=== PATIENT | female | born 1985 | race Caucasian/White ===

== ENCOUNTER 2022-02-08 20:46 | Emergency (ER) | payer BC, SELFPAY ==
[2022-02-08 20:59] VITALS: BP 135/75; PULSE 101; RESP 18; TEMP 36.7; O2SAT 99; BMI 21.9
[2022-02-08] MEDS: LIDOCAINE 1% 5 ml (pf) 5 ML VIAL 3 ML IM (21:00)
--- NOTE | 2022-02-08 21:07 | ED.GENADULT ---
HPI - General Adult General Time Seen by Provider: 21:08 Date Seen: 02/08/22 Chief complaint: Skin/Abscess/Foreign Body Stated complaint: staple in hand Time Seen by Provider: 02/08/22 20:47 Source: patient Mode of arrival: ambulatory Limitations: no limitations History of Present Illness HPI narrative: Patient is a 36-year-old female who had a stapler gone go off in her hand, it was not pneumatic, but a regular industrial stapler. She has a stable in the palm of her hand/right. Patient is quite upset by the whole ordeal she is uncertain of her last tetanus shot. S medical history of GERD migraines pyelonephritis major depressive disorder anxiety disorder and borderline personality disorder.. Meds are citalopram and famotidine Related Data Home Medications Medication Instructions Recorded Confirmed citalopram 40 mg tablet 40 mg PO QDAY 02/02/22 02/08/22 gabapentin 100 mg capsule 100 mg PO HS 02/08/22 02/08/22 lamotrigine 25 mg tablet 25 mg PO DAILY 02/08/22 02/08/22 Previous Rx's Medication Instructions Recorded famotidine 20 mg tablet 20 mg PO QDAY #30 tabs 02/04/22 cephalexin 500 mg capsule 500 mg PO QID #20 caps 02/08/22 cephalexin 500 mg capsule 500 mg PO QID #20 caps 02/08/22 Allergies Allergy/AdvReac Type Severity Reaction Status Date / Time doxycycline AdvReac Unknown Vomiting Verified 02/02/22 13:24 Review of Systems Narrative: No history of bleeding or wound healing problems pure PFSH PFSH Medical History (Updated 02/08/22 @ 22:02 by Angus Chanel RN) Anxiety ASCUS with positive high risk HPV Borderline personality disorder History of hidradenitis suppurativa History of methamphetamine abuse History of peritonsillar abscess Major depressive disorder Surgical History Hx of colposcopy with cervical biopsy Social History Smoking Status: Current every day smoker Do you use any of these nicotine containing products: None Second hand tobacco smoke exposure: No How often do you have a drink containing alcohol: never How often do you have six or more drinks on one occasion: Never AUDIT-C Alcohol total score: 0 Non-prescribed substance use: denies use Exam Narrative: Exam Narrative: Objective: Is a stable in the palm of the hand moves her fingers fine but she is very apprehensive about moving or not grabbing her hand. Procedure: Sterile scrub and injected with 1% xylocaine without epinephrine the sia easily removed with a forceps. There was a little bit of are bleeding after removal and a pressure was applied seemed to have stopped will observe for a period of time. Will check on tetanus status Const: Vital Signs, click to edit/add: Vital Signs - 24 hr 02/08/22 20:59 02/08/22 21:37 02/08/22 22:07 Temperature 98.0 F 98.0 F Pulse Rate [Right Pulse Oximeter] 101 H 94 94 Respiratory Rate 18 18 18 Blood Pressure [Ri ght Upper Arm] 135/75 127/78 127/78 Pulse Oximetry 99 99 Oxygen Delivery Me thod Room Air Room Air Course Vital Signs Vital signs: Initial Vital Signs Temperature 98.0 F 02/08/22 20:59 Temperature Source Temporal Artery Scan 02/08/22 20:59 Pulse Rate 101 H 02/08/22 20:59 Respiratory Rate 18 02/08/22 20:59 Blood Pressure 135/75 02/08/22 20:59 Blood Pressure Mean 95 02/08/22 20:59 Blood Pressure Position Sitting 02/08/22 20:59 Pulse Oximetry 99 02/08/22 20:59 Oxygen Delivery Method 02/08/22 20:59 Vital Signs Temperature 98.0 F 02/08/22 20:59 Pulse Rate 101 H 02/08/22 20:59 Respiratory Rate 18 02/08/22 20:59 Blood Pressure 135/75 02/08/22 20:59 Pulse Oximetry 99 02/08/22 20:59 Oxygen Delivery Method 02/08/22 20:59 Temperature 98.0 F 02/08/22 22:07 Pulse Rate 94 02/08/22 22:07 Respiratory Rate 18 02/08/22 22:07 Blood Pressure 127/78 02/08/22 22:07 Pulse Oximetry 99 02/08/22 21:37 Oxygen Delivery Method 02/08/22 21:37 Medical Decision Making MDM Narrative Medical decision making narrative: The hand was inspected and there was no further bleeding. Another pressure dressing was placed. They can keep this on until tomorrow and then soak it off and cover with a bandage. Keflex x5 days, Advil or Tylenol as needed. Recheck as needed, examination of movement of the hands and sensation was full after stable remove Discharge Plan Discharge Clinical Impression: Foreign body hand Patient Disposition: Home w/ Parent or Adult Condition: Improved Additional Instructions: Keep dressing on for 1 day, then may soak it off, Tylenol Advil as needed for discomfort, watch for bleeding or infection, tetanus shot given, Keflex x5 days Activity Level: Light activity Discharge Diet: Regular Prescriptions: New cephalexin 500 mg capsule 500 mg PO QID Qty: 20 0RF cephalexin 500 mg capsule 500 mg PO QID Qty: 20 0RF No Action gabapentin 100 mg capsule 100 mg PO HS lamotrigine 25 mg tablet 25 mg PO DAILY citalopram 40 mg tablet 40 mg PO QDAY famotidine 20 mg tablet 20 mg PO QDAY Qty: 30 0RF Rx Instructions: due for an appt for further refills Follow Up/Referrals: Mart Cam PA-C [Primary Care Provider] - Stand Alone Forms: [employer] Info Instructions
[2022-02-08] MEDS: cephALEXin 500 MG CAPSULE PO (21:29)
[2022-02-08] MEDS: TETANUS/DIPHTH/PERTUSSIS 0.5 ML SYRINGE IM (21:30)
[2022-02-08 21:37] VITALS: BP 127/78; PULSE 94; RESP 18; O2SAT 99
[2022-02-08 22:07] VITALS: BP 127/78; PULSE 94; RESP 18; TEMP 36.7
== END 2022-02-08 21:55 | disposition home or self-care (01) ==
PROVIDERS: Emergency Provider Family Medicine; PCP Physician Assistant Medical
DX: S61.441A Puncture wound with foreign body of right hand, initial encounter (principal); W45.8XXA Other foreign body or object entering through skin, initial encounter; Y93.9 Activity, unspecified; Y92.9 Unspecified place or not applicable; Y99.9 Unspecified external cause status
CPT/HCPCS: 90471; 90715; 99283; A9270

== ENCOUNTER 2023-05-12 21:55 | Emergency (ER) | payer BC, SELFPAY ==
[2023-05-12 22:02] VITALS: BP 127/83; PULSE 102; RESP 18; TEMP 36.6; O2SAT 100; BMI 26.5
--- NOTE | 2023-05-12 22:09 | ED_ITS ---
HPI - General Adult General Date Seen: 05/12/23 Chief complaint: Extremity Pain/Injury, Lower Stated complaint: left leg pain Time Seen by Provider: 05/12/23 21:56 Source: patient Mode of arrival: ambulatory Limitations: no limitations History of Present Illness HPI narrative: Patient is a 38-year-old female presenting to the emergency department for left leg and left lower back pain. She states she has been having this leg and back pain for the past 3 days. She went to a clinic appointment yesterday for it and was prescribed prednisone and was go pick it up today but was told by the pharmacist that there is something that will keep her awake at night she should probably started in the morning. States she feels some numbness in her left toes that seems to be going up into her knee but is mostly concerned about the left gluteal area and posterior thigh pain. She feels like the pain is starting in her low back. She works as a head of housekeeping and does not remember hurting herself or any recent heavy lifting. States she did not do anything different work than she usually does. Was unable to finish work the past 3 days because of the pain. Does have an MRI scheduled for next week. Is not aware of any injuries. Denies saddle anesthesia, loss of bowel or bladder control, urinary tension. No other concerns noted at this time. Does state she has the lay in a certain position to be symptom free. She has been taking ibuprofen for pain with some improvement in her symptoms. Related Data Home Medications Medication Instructions Recorded Confirmed citalopram 40 mg tablet 40 mg PO QDAY 02/02/22 05/11/23 gabapentin 100 mg capsule 100 mg PO HS 02/08/22 05/11/23 lamotrigine 25 mg tablet 25 mg PO DAILY 02/08/22 05/11/23 Previous Rx's Medication Instructions Recorded famotidine 20 mg tablet 20 mg PO QDAY #30 tabs 02/04/22 prednisone 20 mg tablet See Rx Instructions PO QDAY back 05/11/23 pain #10 tabs oxycodone 5 mg tablet 5 mg PO Q6H PRN pain #12 tabs 05/12/23 Allergies Allergy/AdvReac Type Severity Reaction Status Date / Time doxycycline AdvReac Unknown Vomiting Verified 05/11/23 15:14 Review of Systems Status of ROS: Reports: 10 or more systems reviewed and unremarkable except as noted in History and below PFSH PFSH Medical History ASCUS with positive high risk HPV Major depressive disorder ?F32.9 - Major depressive disorder, single episode, unspecified (ICD-10) Anxiety ?F41.9 - Anxiety disorder, unspecified (ICD-10) Borderline personality disorder ?F60.3 - Borderline personality disorder (ICD-10) History of methamphetamine abuse ?F15.11 - Other stimulant abuse, in remission (ICD-10) History of hidradenitis suppurativa ?Z87.2 - Personal history of diseases of the skin and subcutaneous tissue (ICD-10) History of peritonsillar abscess ?Z87.09 - Personal history of other diseases of the respiratory system (ICD- 10) Surgical History Hx of colposcopy with cervical biopsy ?Z98.890 - Other specified postprocedural states (ICD-10) Social History Smoking Status: Current every day smoker What tobacco products do you use: cigarettes Do you use any of these nicotine containing products: None Second hand tobacco smoke exposure: No How often do you have a drink containing alcohol: never How often do you have six or more drinks on one occasion: Never AUDIT-C Alcohol total score: 0 Non-prescribed substance use: denies use service: No Exam Narrative: Exam Narrative: Const: Well-nourished, Well-developed, in moderate distress Eyes: PERRL, no conjunctival injection, and symmetrical lids HENT: Atraumatic external nose and ears. Moist mucous membranes. MSK:Extremities w/o deformity, Normal Active ROM, positive slump leg test bilaterally Skin: Warm, Dry. No rashes or lesions. Neuro: Normal Muscle tone, No focal neurological deficits. Psych: Awake, Alert, & Oriented x3. Appropriate mood and affect. Const: Vital Signs, click to edit/add: Vital Signs - 24 hr 05/12/23 22:02 Temperature 97.8 F Pulse Rate [Pulse Oximeter] 102 H Respiratory Rate 18 Blood Pressure [Ri ght Upper Arm] 127/83 Pulse Oximetry 100 Oxygen Delivery Me thod Room Air Course Vital Signs Vital signs: Initial Vital Signs Temperature 97.8 F 05/12/23 22:02 Temperature Source Temporal Artery Scan 05/12/23 22:02 Pulse Rate 102 H 05/12/23 22:02 Respiratory Rate 18 05/12/23 22:02 Blood Pressure 127/83 05/12/23 22:02 Blood Pressure Mean 97 05/12/23 22:02 Blood Pressure Position Sitting 05/12/23 22:02 Pulse Oximetry 100 05/12/23 22:02 Oxygen Delivery Method Room Air 05/12/23 22:02 Vital Signs Temperature 97.8 F 05/12/23 22:02 Pulse Rate 102 H 05/12/23 22:02 Respiratory Rate 18 05/12/23 22:02 Blood Pressure 127/83 05/12/23 22:02 Pulse Oximetry 100 05/12/23 22:02 Oxygen Delivery Method Room Air 05/12/23 22:02 Temperature 97.8 F 05/12/23 22:02 Pulse Rate 102 H 05/12/23 22:02 Respiratory Rate 18 05/12/23 22:02 Blood Pressure 127/83 05/12/23 22:02 Pulse Oximetry 100 05/12/23 22:02 Oxygen Delivery Method Room Air 05/12/23 22:02 Medications Administered Medications: Discontinued Medications Generic Name Dose Route Start Last Admin Trade Name Martha PRN Reason Stop Dose Admin Ketorolac Tromethamine 30 mg 05/12/23 22:23 05/12/23 22:40 Ketorolac 30 Mg/Ml Inj IM 05/12/23 22:24 30 mg ONCE ONE Administration Oxycodone HCl 5 mg 05/12/23 22:23 05/12/23 22:41 Oxycodone 5 Mg Tablet PO 05/12/23 22:24 5 mg ONCE ONE Administration Medical Decision Making [facility] Narrative Medical decision making narrative: Patient is a 38 year female presenting for left leg and low back pain. Symptoms seem to start in the low back and on the slumped over straight leg test she had pain to the left leg and left lower back with extension of either leg. Present illness I think it is likely she has a herniated disc. Symptoms. Start from her back and there is no leg swelling so pain seems unlikely to be secondary to DVT. I do not believe ultrasound is necessary. This will be consistent with a symptoms everything seems to be a nerve issue. She is having no red flag symptoms for cauda equina syndrome as this time. Imaging is not necessary as x- rays and CTs would not be very beneficial and she has an MRI scheduled for next week. We will give her a dose of Toradol and some oxycodone emergency d epartment to help with her symptoms. Of note she used to be on gabapentin for her borderline personality and anxiety disorder but is no longer taking it. Patient did have improvement in her pain with the medication. She will be discharged home with oxycodone. She is agreeable to this plan. Discharge Plan Discharge Clinical Impression: Low back pain Qualifiers: Chronicity: acute Back pain laterality: left Sciatica presence: with sciatica Sciatica laterality: sciatica of left side Qualified Code(s): M54.42 - Lumbago with sciatica, left side Patient Disposition: Home, Self-Care Condition: Improved Instructions: Acute Low Back Pain (ED) Additional Instructions: Take Tylenol and ibuprofen for pain. If that is not helping use the oxycodone. Make sure to go to your MRI appointment next week. Return to emergency department for new or worsening symptoms Prescriptions: New oxycodone 5 mg tablet 5 mg PO Q6H PRN (Reason: pain) Qty: 12 0RF No Action prednisone 20 mg tablet See Rx Instructions PO QDAY Qty: 10 0RF Rx Instructions: 3 po as single dose days 1-2, 2 po as single dose days 3-4, 1 po days 5-6, then discontinue. gabapentin 100 mg capsule 100 mg PO HS lamotrigine 25 mg tablet 25 mg PO DAILY citalopram 40 mg tablet 40 mg PO QDAY famotidine 20 mg tablet 20 mg PO QDAY Qty: 30 0RF Rx Instructions: due for an appt for further refills Follow Up/Referrals: Mart Cam PA-C [Primary Care Provider] - Stand Alone Forms: [employer] Info Instructions
--- OUTSIDE RECORDS SUMMARY | 2023-05-12 22:39 | XMS_ITS | Clinical Summary ---
Author Name Unknown Organization [facility] Address [place], [place] [address] Care Team Providers Care Bottling Room Worker Name Role Phone Unknown, Doctor Primary Care Provider Unavailabl e Allergies No known active allergies Medications Medication Sig Dispensed Refills Start Date End Date Status lamoTRIgine (LAMICTAL) 200 mg tabletIndications:de pression associated with bipolar disorder Take 1 tablet by mouth once daily. Indications: DEPRESSION ASSOCIATED WITH MANIC DEPRESSIVE DISORDER 0 09/25/2014 Active citalopram (CELEXA) 40 mg tabletIndications:an xiety with depression Take 1 tablet by mouth once daily. Indications: ANXIETY WITH DEPRESSION 0 09/25/2014 Active Active Problems Problem Noted Date Diagnosed Date Adjustment disorder with depressed mood 09/26/19 15 Mood disorder 09/24/2014 Methamphetamine abuse 09/24/2014 Amphetamine abuse 09/24/2014 Borderline personality disorder 09/24/2014 BURN, TRUNK 04/07/2005 SPRAIN/STRAIN, METACARPOPHALANGEAL 01/13/2001 KNEE PAIN Family History Medical History Relation Name Comments Genetic Other MOm has migrain e CHAVARRIA Relation Name Status Comments Other Social History Tobacco Use Types Packs/Day Years Used Date Smoking Tobacco: Former Cigarettes Q uit: 09/07/2002 Smokeless Tobacco: Never Alcohol Use Standard Drinks/Week Comments Not Asked 0 (1 standard drink = 0.6 oz pur e alcohol) Sex and Gender Information Value Date Recorded Sex Assigned at Not on file Gender Identity Not on file Sexual Orientation Not on file Obstetrics History Last Filed Vital Signs Vital Sign Reading Time Taken Comments Blood Pressure 126/68 09/24/2014 4:00 PM CDT Pulse 83 09/24/2014 4:00 PM CDT Temperature 36.9 ??C (98.4 ??F) 09/24/2014 4:00 PM CD T Respiratory Rate 18 09/24/2014 4:00 PM CDT Oxygen Saturation 98% 09/23/2014 6:00 PM CDT Inhaled Oxygen Concentration - - Weight 48.1 kg (106 lb) 04/19/2006 10:15 AM CRM DEVELOPER Height 160 cm (5' 3) 04/19/2006 10:15 AM CRM DEVELOPER Body Mass Index 18.78 04/19/2006 10:15 AM CRM DEVELOPER Plan of Treatment Health Maintenance Due Date Last Done Comments COVID-19 vaccine series (#1) 1987 Tdap 1998 Depression screening for age 12+ 1999 HIV for age 15-65 2002 BMI (ht and wt on same day) for age 18+ 2005 Hepatitis C screening for ag e 18-79 2005 Tetanus booster 2007 Pap test for age 21-65 09/20/2022 0, 09/21/2019, 04/10/2013 Influenza for age 9-49 12/03/2022 Pneumococcal series for age 6-64 Aged Out No longer eligible b ased on patient's age to complete this topic Advance Directives Latest Code Status on File Code Status Date Activated Date Inactivated Comments Full Code 09/23/2014 6:37 PM 09/25/2014 3:36 PM Care Teams Bottling Room Worker Relationship Specialty Start Date End Date Unknown, Doctor . PCP - General Unknown Physician Specialty 03/30/12
[2023-05-12] MEDS: KETOROLAC 30 MG/ML inj IM (22:40)
[2023-05-12] MEDS: OXYCODONE 5 MG TABLET PO (22:41)
== END 2023-05-12 23:30 | disposition home or self-care (01) ==
PROVIDERS: Emergency Provider Student in an Organized Health Care Education/Training Program; PCP Physician Assistant Medical
DX: M54.42 Lumbago with sciatica, left side (principal)
CPT/HCPCS: 96372; 99282; 99283; A9270; J1885

== ENCOUNTER 2023-05-19 13:48 | Outpatient (CLI) | payer BC, SELFPAY ==
--- NOTE | 2023-05-19 13:45 | MR_ITS ---
[facility] [address] [facility] [address] Phone:?[phone] Fax:?[phone] Referring Physician Information: Humberto Moreno [address] [facility] [address] Phone:?[phone] Fax:?[phone] Patient:Jordon Mei D.O.B:?1985 Sex:?Female Phone:?[phone] [facility] MRN:?[id number] Exam Date:?05/19/2023 EXAM: MRI OF THE LUMBAR SPINE WITHOUT CONTRAST CLINICAL INFORMATION: Low back pain radiating into left leg. TECHNICAL INFORMATION: Sagittal fast spin-echo T2-weighted, T1-weighted, STIR as well as axial fast spin-echo T1 and T2-weighted images of the lumbar spine were obtained on a 1.5 [employer] MRI scanner.?SEDATION:?None.?CONTRAST:?None. INTERPRETATION: No comparison. Generalized dextrocurvature and straightened lumbar lordosis. No acute fracture or spondylolysis. Conus is normal and terminates at T12-L1. Imaged upper sacrum and paraspinal soft tissue structures are unremarkable. Disc desiccation and annular bulging are demonstrated at L5-S1 and L4-5. Disc space narrowing is moderate at L4-5 and mild at L5-S1. L5-S1: 8 to 9 mm AP diameter, cranially extending left posterolateral, broad- based disc extrusion with mild to moderate central stenosis, mild to moderate right/severe left subarticular recess narrowing and impingement upon the traversing left S1 and S2 nerve roots. Mild bilateral facet hypertrophy with mild bilateral chronic foraminal narrowing. L4-5: 5 to 6 mm AP diameter, broad-based central disc protrusion with mild to moderate central stenosis, moderate bilateral subarticular recess narrowing and encroachment upon the traversing bilateral L5 nerve roots. Mild right facet hypertrophy with mild right medial chronic foraminal narrowing. L3-4 through T11-12: Normal posterior disc margins and facets. Patent foramina. CONCLUSION: L4-5 and L5-S1 disc degeneration with the following notable findings: 1. 8-9 mm, cranially extending left posterolateral disc extrusion with mild to moderate central stenosis and subarticular impingement upon the traversing left S1 and S2 nerve roots. 2. 5 to 6 mm broad-based central L4-5 disc protrusion with mild to moderate central stenosis and subarticular encroachment upon the traversing bilateral L5 nerve roots. 3. No acute fracture or spondylolysis. 4. Chronic mild bilateral L5-S1 and mild right medial L4-5 foraminal narrowing without ganglionic compression. SC Electronically signed on 05/19/2023 6:02:00 PM by Alonso Manning M.D.
--- OUTSIDE RECORDS SUMMARY | 2023-05-19 13:50 | XMS_ITS | Clinical Summary ---
Author Name Unknown Organization [facility] Address [place], [place] [address] Care Team Providers Care Almond Sorter Name Role Phone Unknown, Doctor Primary Care [...] 48.1 kg (106 lb) 04/19/2006 10:15 AM BEAUTY CULTURIST APPRENTICE Height 160 cm (5' 3) 04/19/2006 10:15 AM BEAUTY CULTURIST APPRENTICE Body Mass Index 18.78 04/19/2006 10:15 AM BEAUTY CULTURIST APPRENTICE Plan of Treatment Health Maintenance Due Date [...] 6:37 PM 09/25/2014 3:36 PM Care Teams Almond Sorter Relationship Specialty Start Date End Date Unknown, Doctor . PCP - General Unknown Physician Specialty 03/30/12
== END 2023-05-19 13:49 | disposition home or self-care (01) ==
PROVIDERS: PCP Physician Assistant Medical; Visit Provider Physician Assistant
DX: M54.50 Low back pain, unspecified (principal); M51.26 Other intervertebral disc displacement, lumbar region; M51.37 Other intervertebral disc degeneration, lumbosacral region
CPT/HCPCS: 72148

== ENCOUNTER 2023-06-26 01:36 | Emergency (ER) | payer BC, SELFPAY ==
[2023-06-26 01:50] VITALS: BP 108/64; PULSE 104; RESP 20; TEMP 36.5; O2SAT 100; BMI 27.2
--- NOTE | 2023-06-26 01:57 | ED_ITS ---
HPI - General Adult General Chief complaint: Back Injury/Pain Stated complaint: back pain Time Seen by Provider: 06/26/23 01:39 Source: patient Mode of arrival: ambulatory Limitations: no limitations History of Present Illness HPI narrative: 38-year-old female coming in today complaining of low back pain radiating down the left leg. Patient was diagnosed with a herniated disc about a month ago. She states she has been dealing with this for about 6 weeks now. She has a surgery scheduled 6 days from now, she will be having a micro diskectomy. She states that she received oxycodone from this ER about 6 weeks ago and she has 4 tablets left, she took 1 earlier did not help. She has been taking Tylenol otherwise for her pain. Today however the pain got worse and she is unable to find a comfortable position. She denies any saddle anesthesia, no loss of bowel or bladder function. No fevers or chills. No nausea or vomiting. Pain is in the same location and distribution as it has always been. Related Data Home Medications Medication Instructions Recorded Confirmed citalopram 40 mg tablet 40 mg PO QDAY 02/02/22 06/01/23 gabapentin 100 mg capsule 100 mg PO HS 02/08/22 06/01/23 lamotrigine 25 mg tablet 25 mg PO DAILY 02/08/22 06/01/23 Previous Rx's Medication Instructions Recorded famotidine 20 mg tablet 20 mg PO QDAY #30 tabs 02/04/22 oxycodone 5 mg tablet 5 mg PO Q6H PRN pain #12 tabs 05/12/23 methylprednisolone 4 mg tablets in See Rx Instructions PO PER PKG DIR 06/01/23 a dose pack (Medrol (Charlie)) #21 ea prednisone 20 mg tablet 20 mg PO DIRECTED 6 days #12 06/26/23 tabs Allergies Allergy/AdvReac Type Severity Reaction Status Date / Time doxycycline Allergy Intermediate Vomiting Verified 06/26/23 01:50 stainless steel Allergy Intermediate body Uncoded 06/01/23 09:12 rejects Review of Systems Status of ROS: Reports: 10 or more systems reviewed and unremarkable except as noted in History and below [facility] Medical History Sciatica ?M54.30 - Sciatica, unspecified side (ICD-10) Left leg numbness ?R20.0 - Anesthesia of skin (ICD-10) Strain of lumbar region (12/22/12) ?S39.012A - Strain of muscle, fascia and tendon of lower back, initial encounter (ICD-10) Sore throat ?J02.9 - Acute pharyngitis, unspecified (ICD-10) Positive blood culture ?R78.81 - Bacteremia (ICD-10) Pharyngitis ?J02.9 - Acute pharyngitis, unspecified (ICD-10) Peritonsillar abscess ?J36 - Peritonsillar abscess (ICD-10) Neck infection ?L08.9 - Local infection of the skin and subcutaneous tissue, unspecified (ICD-10) History of fever ?Z87.898 - Personal history of other specified conditions (ICD-10) Hidradenitis suppurativa of right axilla ?L73.2 - Hidradenitis suppurativa (ICD-10) Headache ?R51.9 - Headache, unspecified (ICD-10) Fever ?R50.9 - Fever, unspecified (ICD-10) Abscess of groin ?L02.214 - Cutaneous abscess of groin (ICD-10) ASCUS with positive high risk HPV Major depressive disorder ?F32.9 - Major depressive disorder, single episode, unspecified (ICD-10) Anxiety ?F41.9 - Anxiety disorder, unspecified (ICD-10) Borderline personality disorder ?F60.3 - Borderline personality disorder (ICD-10) History of methamphetamine abuse ?F15.11 - Other stimulant abuse, in remission (ICD-10) History of hidradenitis suppurativa ?Z87.2 - Personal history of diseases of the skin and subcutaneous tissue (ICD-10) History of peritonsillar abscess ?Z87.09 - Personal history of other diseases of the respiratory system (ICD- 10) Surgical History Hx of colposcopy with cervical biopsy ?Z98.890 - Other specified postprocedural states (ICD-10) Social History Narrative: IUD (intrauterine device) in place September 2020 Smoking Status: Current every day smoker What tobacco products do you use: cigarettes Do you use any of these nicotine containing products: None Second hand tobacco smoke exposure: No How often do you have a drink containing alcohol: never How often do you have six or more drinks on one occasion: Never AUDIT-C Alcohol total score: 0 Non-prescribed substance use: denies use service: No Exam Narrative: Exam Narrative: Well-nourished well-developed patient in moderate distress. Alert and oriented. Answers questions appropriately. Mood and affect are appropriate. Thoughts are goal oriented and rational. No tangential or magical thinking noted. Patient speaks in full sentences without needing to catch her breath. HEENT: Normocephalic atraumatic. Pupils are equally round reactive to light. Extraocular muscles are intact. Conjunctivae are moist without any icterus noted. Moist mucous membranes. Extremities: Bilateral lower extremities are without edema. Normal DP and PT pulses. Skin: Well perfused. Neurological exam: Normal muscle tone. No focal neurologic deficits. Positive straight leg raise. Back: No tenderness to palpation of the back. Const: Vital Signs, click to edit/add: Vital Signs - 24 hr 06/26/23 01:50 Temperature 97.7 F Pulse Rate [Pulse Oximeter] 104 H Respiratory Rate 20 Blood Pressure [Ri ght Upper Arm] 108/64 Pulse Oximetry 100 Oxygen Delivery Me thod Room Air Course Course ED Course: Patient received IM Toradol and a dose of oral prednisone. Vital Signs Vital signs: Initial Vital Signs Temperature 97.7 F 06/26/23 01:50 Temperature Source Temporal Artery Scan 06/26/23 01:50 Pulse Rate 104 H 06/26/23 01:50 Pulse Strength 3+ Normal 06/26/23 01:50 Respiratory Rate 20 06/26/23 01:50 Blood Pressure 108/64 06/26/23 01:50 Blood Pressure Mean 78 06/26/23 01:50 Pulse Oximetry 100 06/26/23 01:50 Oxygen Delivery Method Room Air 06/26/23 01:50 Vital Signs Temperature 97.7 F 06/26/23 01:50 Pulse Rate 104 H 06/26/23 01:50 Respiratory Rate 20 06/26/23 01:50 Blood Pressure 108/64 06/26/23 01:50 Pulse Oximetry 100 06/26/23 01:50 Oxygen Delivery Method Room Air 06/26/23 01:50 Temperature 97.7 F 06/26/23 01:50 Pulse Rate 104 H 06/26/23 01:50 Respiratory Rate 20 06/26/23 01:50 Blood Pressure 108/64 06/26/23 01:50 Pulse Oximetry 100 06/26/23 01:50 Oxygen Delivery Method Room Air 06/26/23 01:50 Medications Administered Medications: Discontinued Medications Generic Name Dose Route Start Last Admin Trade Name Martha PRN Reason Stop Dose Admin Ketorolac Tromethamine 60 mg 06/26/23 01:57 06/26/23 02:05 Ketorolac 30 Mg/Ml Inj IM 06/26/23 01:58 60 mg ONCE ONE Administration Prednisone 50 mg 06/26/23 01:57 06/26/23 02:05 Prednisone 10 Mg Tablet PO 06/26/23 01:58 50 mg ONCE ONE Administration Medical Decision Making MDM Narrative Medical decision making narrative: 38-year-old herniated disc. Awaiting surgery at this time. The patient states that she has had steroids in the past and they did help with her pain. Therefore she will be sent home on a prednisone taper. Medical Records Medical records reviewed: Yes I reviewed the patient's medical records Discharge Plan Discharge Clinical Impression: Lumbar radiculopathy Patient Disposition: Home, Self-Care Condition: Stable Additional Instructions: Take steroids as prescribed. Follow-up as needed. Prescriptions: New prednisone 20 mg tablet 20 mg PO DIRECTED 6 Days Qty: 12 0RF Rx Instructions: 60 mg p.o. daily for 2 days (3 tablets daily on day 1-2), 40 mg daily for 2 days (2 tablets daily on days 3-4), 20 mg daily for 2 days (1 tablet daily on days 5-6). No Action methylprednisolone [Medrol (Charlie)] 4 mg tablets,dose pack See Rx Instructions PO PER PKG DIR Qty: 21 0RF Rx Instructions: PO PER PKG DIR gabapentin 100 mg capsule 100 mg PO HS lamotrigine 25 mg tablet 25 mg PO DAILY oxycodone 5 mg tablet 5 mg PO Q6H PRN (Reason: pain) Qty: 12 0RF citalopram 40 mg tablet 40 mg PO QDAY famotidine 20 mg tablet 20 mg PO QDAY Qty: 30 0RF Rx Instructions: due for an appt for further refills Follow Up/Referrals: Mart Cam PA-C [Primary Care Provider] - Stand Alone Forms: [employer] Info Instructions
[2023-06-26] MEDS: predniSONE 10 MG TABLET 50 MG PO (02:05)
[2023-06-26] MEDS: KETOROLAC 30 MG/ML inj 60 MG IM (02:05)
== END 2023-06-26 02:15 | disposition home or self-care (01) ==
LOC: ED 02:07
PROVIDERS: Emergency Provider Family Medicine; PCP Physician Assistant Medical
DX: M54.16 Radiculopathy, lumbar region (principal)
CPT/HCPCS: 96372; 99284; J1885; J7512

== ENCOUNTER 2023-06-28 12:14 | Outpatient (CLI) | payer BC, SELFPAY | END 2023-06-28 12:15 | disposition home or self-care (01) | PROVIDERS: PCP Physician Assistant Medical; Visit Provider Emergency Medicine | DX: Z01.818 Encounter for other preprocedural examination (principal); R00.0 Tachycardia, unspecified | CPT/HCPCS: 80048; 84443 ==